=== PATIENT | male | born 1990 ===

== ENCOUNTER 2019-03-12 08:06 | Outpatient (CLI) | payer OTHER | END 2019-03-12 08:08 | disposition home or self-care (01) | LOC: SONOGRAMA 08:06 | DX: E04.2 Nontoxic multinodular goiter (principal) ==

== ENCOUNTER → 2020-03-30 | Outpatient (CLI) | payer OTHER | END | disposition home or self-care (01) | LOC: PPH VACUNA | DX: Z23 Encounter for immunization (principal) ==